=== PATIENT | male | born 1970 | race Hispanic/Latino ===

== ENCOUNTER 2024-11-22 00:12 | Emergency (ER) | payer BC ==
[2024-11-22 00:49] LABS: #Basophils 0.04 10x3/uL (0.0-0.2); #Monocytes 0.83 10x3/uL (0.0-1.1); %Basophils 0.4 % (0.0-2.0); %Eosinophils 2.7 % (0.0-6.0); %Lymphocytes 37.7 % (18.0-47.0); %Monocytes 7.6 % (0.0-10.0); %Neutrophils 51.3 % (40.0-75.0); Hemoglobin 16.1 g/dL (13.5-17.5); Mean Corpuscular HGB CONC 34.3 g/dL (32.0-36.0); Mean Corpuscular Hemoglobin 30.9 pg (27.0-33.0); Mean Corpuscular Volume 90.2 fL (81.2-95.1); Platelet Count 271 10x3/uL (150-450); RBC Distribution Width 12.4 % (11.5-14.5); Red Blood Cell (RBC) Count 5.21 10x6/uL (4.32-5.72); White Blood Cell (WBC) Count 10.92 10x3/uL (3.5-10.5)
[2024-11-22 01:04] LABS: ALT (SGPT) 53 U/L (Less than 45); AST (SGOT) 43 U/L (11-34); Albumin 4.3 g/dL (3.1-4.5); Alkaline Phosphatase 51 U/L (40-110); Anion Gap 18 mmol/L (10-20); BUN (Urea Nitrogen) 17 mg/dL (8.4-25.7); Bilirubin, Total 0.4 mg/dL (0.3-1.2); Calc. Creatinine Clearance 0 mL/min (70-130); Calcium 10.1 mg/dL (7.8-10.44); Carbon Dioxide 20 mmol/L (22-29); Chloride 105 mmol/L (98-107); Estimated GFR 70; Globulin 3.9 g/dL (2.4-3.5); Glucose 110 mg/dL (70-105); Potassium 4.1 mmol/L (3.5-5.1); Protein, Total 8.2 g/dL (6.0-8.3); Sodium 139 mmol/L (136-145)
[2024-11-22 01:11] LABS: Troponin I 0.019 ng/mL (< 0.028)
[2024-11-22] MEDS ORDERED: Amlodipine 5 MG TAB ONE (01:53)
== END 2024-11-22 02:11 | disposition home or self-care (01) ==
LOC: CSHERS 00:12
DX: R00.2 Palpitations (principal); I10 Essential (primary) hypertension
CPT/HCPCS: 71045; 80053; 83880; 84443; 84484; 85025; 93005; 93010